=== PATIENT | female | born 1985 | race Caucasian/White ===

== ENCOUNTER → 2023-06-04 14:54 | Outpatient (BNVA) | payer OTHER, SELFPAY | PROVIDERS: PCP Pediatrics; Visit Provider Physician Assistant Surgical ==

== ENCOUNTER 2023-06-30 13:26 | Outpatient (AMB) | payer OTHER, SELFPAY ==
--- NOTE | 2023-06-30 13:28 | MHC.OFFVISWM ---
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 She heard about our program from her internet search. Her goal is to lose weight and achieve a healthy lifestyle. She reports first being concerned about her weight about 4 years ago, highest weight to date was 250. Her weight upon presentation to the [facility] SWL clinic on 06/04/23 was 250.8 with a BMI of 40.5. Current weight is 248.6 pounds with a BMI of 40.1. She has tried multiple methods of weight loss including fad diets and diet pills without permanent results. She lives with her boyfriend and his mother. 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 She wakes at:?730am, and goes to bed at?1130 pm. Dinner is at 530 pm. Breakfast: skip, coffee w cream AM snack: skip Lunch: leftovers, or eggs, homefries, corned beef hash. PM snack: skip Dinner: smashburgers, veg, chicken After dinner: ice cream, strawberries w caramel Other snacks: candy Liquids: 32 oz water daily, clearly guamanian sparkling water 24 oz daily, no juice Alcohol/marijuana/tobacco intake: hard cider 4 per weekend, no cannabis, no tobacco Exercise: arc hearing dog trainer at home, [employer] fitness membership GERD score: 7 DONTAE score: 1 ESS score: 6 QOL score: 93 PFSH Surgical History No pertinent past surgical history Family History Mother Breast cancer Father No problems noted. Brother No problems noted. Brother No problems noted. Social History Alcohol intake: current Alcohol intake frequency: holidays/special occasions only Patient Tobacco Use Status: Never used Tobacco Review of Systems Const All systems reviewed & are unremarkable except as noted in HPI and below Physical Exam Const General: cooperative, healthy appearing and no acute distress Orientation/consciousness: patient oriented x3 HEENT Head: Yes normal to inspection Ears: hearing grossly normal bilaterally General nose exam: Normal external nose present Face and sinus: Yes normal facial exam Eyes General: appearance normal, both eyes and all related structures Resp Effort & Inspection: normal respiratory effort Auscultation: clear to auscultation bilaterally Cardio Rate: regular rate Rhythm: regular rhythm Heart sounds: S1 normal heart sound present and S2 normal heart sound present GI Inspection: Yes normal to inspection, No distended and Yes obesity Palpation (GI): Soft to palpation, nontender and no guarding Auscultation: normal bowel sounds Skin General skin exam: no rashes or lesions noted Neuro General: patient oriented x3 Extrem General: No edema Psych Appearance: grossly normal Mental Status: mental status grossly normal Speech and movement: Normal speech and movement present Affect: normal affect Attitude: cooperative Assessment & Plan Assessment & Plan (1) Morbid obesity: Code(s): E66.01 - Morbid (severe) obesity due to excess calories Plan: This is a?37 yo female who will start our SWL program to prepare for bariatric surgery.? Blood work, h pylori , CXR, ECG, Abd US and UGI have been ordered. She is being scheduled for RD and BH initial consultations. She will start SWL classes and watch the first three videos before her next appointment. ? Adequate sleep of 7-8 hours per night discussed, awakening at 730 am and going to bed at 1130 pm ? Purchase body composition analyzer scale (Kamala fisher or Renpho recommended) and check weight weekly. The best time to do this is first thing in the morning after going to the bathroom. 1. Nutritional counseling: Be sure to careful read the number of scoops per shake Start with 3 Orgain shakes ([employer], [employer], [employer], [employer]), (1 scoop in 8 oz low fat unsweetened almond milk or water each) First shake at 830am-1030am, Second shake at 1230am-230pm 1 protein bar (Fulfil bars at [employer], or [employer], [employer]) at 330pm-530pm. Dinner at 530pm (9 forks of protein and 9 forks of salad/vegetables). Meal to include lean meat (beef, fish, pork, turkey, chicken), cooked vegetables or a salad with olive oil and/or fruits (berries, pears, apples, kiwi). Avoid salt, breads, potatoes, rice, pasta, desserts. Another shake with 1 scoop in 8 oz unsweetened almond milk at 7pm-9pm. Icelandic yogurt w 1/4 c fresh berries (strawberry, blueberry, raspberry, blackberry) at 10pm-11pm Try to drink 64 oz of water daily and avoid soda and juices. ?2. Each shake would be drunk slowly, like coffee in a period of 2 hours. ?3. Cut each bar in 4 pieces and eat each piece in 30 min ?to make each bar last 2 hours. ?4. I emphasized the importance of measuring accurately the food portion and measure it carefully when serving the food on the plate ?5. The meal portions include 9 full-size forks of meat and 9 full-size forks of salad. You always eat the meat portion but you can replace up to half of the forks of salad/vegetables with rice, potatoes or pasta, or a fruit ?if you like. The less you do it the better weight loss will be. ?6. One full-size fork is what can be scooped on the fork without falling aside and not what can be bit with the fork. Use regular forks like those you find in a typical restaurant. ?7.? Please send me weight measurements as soon as possible and then once a week. Always include your diet and exercise plan. Alternatively come weekly at the office for weight checks and send me the measurements. ?8. Exercise counseling: Begin by watching a stretching for beginners video. Start slowly and begin to stretch your muscles. You should do this before and after each exercise session to prevent injury. Please go to [employer] gym near your home. Ask the community development manager or one of the trainers how to use the machines if you are unfamiliar with them. Start elliptical with a resistance of 2. Increase resistance by 1 every 3 min to your most comfortable resistance with a max resistance of 8. Reduce the resistance by 1 every 3 minutes back down to 2 and repeat cycles for 300 calories. Alternatively, start treadmill with a speed of 3.0 and incline of 0, increasing incline by 1 every 3 minutes to the highest comfortable level (max 6 for now) then decrease in the same fashion. Repeat process to a goal of 300 calories. Goal of 2000 calories burned or more weekly. You may also consider use of the stationary bike. The easiest would be to chose the fat-burn or interval training program on the machine and do this until you reach the 300 calorie goal. Alternatively, you can manually adjust the resistance in a similar fashion as mentioned above, (resistance of 2-8 with a goal speed of 12 mph). Tracking calories is essential. 9. Alternatively start walking outside daily, tracking calories with a goal of 300 calories per day, daily. You can download the lisandro [email or web address] which can track your time, distance and calories while walking outside. You press start in the lisandro when you start and then stop when you are finished. You may certainly also use your arc hearing dog trainer at home, in the same fashion with interval training for the same goal of calories burned. 10.? It is important to avoid for at least 18 months postoperatively and it has been discussed at the information session 11. Please get labs, EKG and chest X-Ray within 1 week. 12. Discussed and answered all questions regarding?obtained consent to participate in the [place] [facility]?Registry. 13. Please follow the diet plan exactly, without any change. If you do not like something about the plan or you feel hungry, you need to communicate with me so I can help you revise the plan. You should not change the plan yourself. Text me at [phone] 14. Goal is to lose at least 12 pounds in the first month 15. Goal is to lose 10% of your weight before surgery, which is about 25 lbs. Ultimate weight goal: 225 lbs before surgery 16. I have also made a referral for you to [facility] Patient is morbidly obese and is not considered stable at this time.?I spent a total of 70 minutes reviewing/updating records, examining the patient and counseling the patient on weight management as detailed above. Orders: Orders Vitamin B12 and Folate Today E66.01 - Morbid (severe) obesity due to excess calories Comprehensive Met. Panel Today E66.01 - Morbid (severe) obesity due to excess calories C Reactive Protein Today E66.01 - Morbid (severe) obesity due to excess calories Ferritin Today E66.01 - Morbid (severe) obesity due to excess calories Hemoglobin A1c Today E66.01 - Morbid (severe) obesity due to excess calories Insulin Today E66.01 - Morbid (severe) obesity due to excess calories IRON PROFILE Today E66.01 - Morbid (severe) obesity due to excess calories Lipid Panel Today E66.01 - Morbid (severe) obesity due to excess calories PTHI Today E66.01 - Morbid (severe) obesity due to excess calories TSH reflex Free T4 Today E66.01 - Morbid (severe) obesity due to excess calories Vitamin A Today E66.01 - Morbid (severe) obesity due to excess calories Vitamin B1 Today E66.01 - Morbid (severe) obesity due to excess calories Vitamin D 25-OH Total Today E66.01 - Morbid (severe) obesity due to excess calories Zinc Today E66.01 - Morbid (severe) obesity due to excess calories ECG 12 lead EKG Today E66.01 - Morbid (severe) obesity due to excess calories FL upper GI w air Today E66.01 - Morbid (severe) obesity due to excess calories Complete Blood Count Auto Diff Today E66.01 - Morbid (severe) obesity due to excess calories H Pylori Breath Test Today E66.01 - Morbid (severe) obesity due to excess calories US abdomen comp w elastography Today E66.01 - Morbid (severe) obesity due to excess calories XR chest 2V Today E66.01 - Morbid (severe) obesity due to excess calories Referrals Behavioral Health Referral E66.01 - Morbid (severe) obesity due to excess calories Gastroenterology Referral E66.01 - Morbid (severe) obesity due to excess calories, K90.0 - Celiac disease Nutrition/Dietitian Referral E66.01 - Morbid (severe) obesity due to excess calories Coding Level of Care Code New Pt Level 5 (45822) Diagnoses Morbid obesity E66.01 Time Spent (min) 70
[2023-06-30 13:36] VITALS: BP 129/81; PULSE 70; TEMP 36.2; O2SAT 94; BMI 40.1
== END 2023-06-30 14:35 | disposition home or self-care (01) ==
PROVIDERS: PCP Pediatrics; Visit Provider Physician Assistant Surgical
DX: E66.01 Morbid (severe) obesity due to excess calories (principal); Z68.41 Body mass index [BMI] 40.0-44.9, adult
CPT/HCPCS: 99205

== ENCOUNTER → 2023-06-30 13:26 | Outpatient (BNVA) | payer OTHER, SELFPAY | PROVIDERS: PCP Pediatrics; Visit Provider Physician Assistant Surgical ==

== ENCOUNTER 2023-06-30 14:50 | Outpatient (REF) | payer OTHER, SELFPAY ==
[2023-07-03 12:40] LABS: H Pylori Breath Test Negative (Negative)
== END 2023-06-30 14:51 | disposition home or self-care (01) ==
LOC: HO.LNP 14:50
PROVIDERS: Visit Provider Physician Assistant Surgical
DX: E66.01 Morbid (severe) obesity due to excess calories (principal)
CPT/HCPCS: 83013

== ENCOUNTER 2023-07-04 11:04 | Outpatient (REF) | payer OTHER, SELFPAY ==
--- NOTE | ~2023-07-04 | XR_ITS ---
EXAMINATION: XR CHEST CLINICAL INFORMATION: Morbid obesity COMPARISON: None available. TECHNIQUE: 2 views of the chest were obtained. FINDINGS: No significant abnormality is noted involving the heart, lungs, mediastinum, bony thorax or soft tissues. XR/XR chest 2V IMPRESSION: Unremarkable examination.
--- NOTE | 2023-07-04 11:14 | ECG_ITS ---
Test Reason : e66.01 Blood Pressure : / mmHG Vent. Rate : 056 BPM Atrial Rate : 056 BPM P-R Int : 140 ms QRS Dur : 088 ms QT Int : 402 ms P-R-T Axes : 009 002 -13 degrees QTc Int : 387 ms Sinus bradycardia Otherwise normal ECG No previous ECGs available Referred By: Kvng Street Electronically Signed By:Hemal Jordan
[2023-07-04 11:27] LABS: MANUAL DIFF FLAG NO
[2023-07-04 12:05] LABS: Basophils Absolute Auto 0.1 X10*3/uL (0.0-0.2); Basophils Percent Auto 0.8 % (0-2); Eosinophils Absolute Auto 0.3 X10*3/uL (0.0-0.4); Eosinophils Percent Auto 2.6 % (0-4); Hematocrit 40.4 % (37.0-47.0); Imm Gran Abs Auto 0.03 X10*3/uL (0.00-0.03); Imm Gran Pct Auto 0.3 % (0.0-0.4); Lymphocytes Absolute Auto 1.9 X10*3/uL (1.2-4.9); Mean Corpuscular HGB Conc 32.2 g/dl (31.0-35.0); Mean Corpuscular Hemoglobin 28.5 pg (27.0-33.0); Mean Corpuscular Volume 88.6 fL (80.0-98.0); Mean Platelet Volume 10.7 fL (9.4-12.3); Monocytes Absolute Auto 0.6 X10*3/uL (0.1-1.2); Monocytes Percent Auto 6.7 % (2-11); Neutrophils Absolute Auto 6.7 x10*3/uL (2.0-8.3); Neutrophils Percent Auto 69.6 % (45-73); Platelet Count 337 X10*3/uL (160-400); Red Blood Count 4.56 X10*6/uL (4.20-5.50); Red Cell Distribution Width 13.5 % (11.0-16.0); White Blood Count 9.6 X10*3/uL (4.8-10.8)
[2023-07-04 12:17] LABS: Estimated Average Glucose 105 mg/dL; Hemoglobin A1c % 5.3 %
[2023-07-04 12:56] LABS: Alanine Aminotransferase 29 U/L (0-31); Albumin Level 3.9 g/dL (3.5-5.0); Alkaline Phosphatase 68 U/L (39-117); Anion Gap 9 (12-20); Aspartate Amino Transferase 19 U/L (5-31); Bilirubin Total 0.3 mg/dL (0.0-1.0); Blood Urea Nitrogen 9 mg/dL (9-16); C Reactive Protein 1.07 mg/dL (< or = 0.50); Calcium 9.4 mg/dL (8.4-10.2); Carbon Dioxide 27 mmol/L (22-29); Chloride 108 mmol/L (96-108); Cholesterol 140 mg/dL; Estimated Glomerular Filt Rate > 60; Glucose Random 98 mg/dL (60-115); HDL Cholesterol 42 mg/dL; Iron 78 mcg/dL (30-160); LDL Cholesterol Calculated 88 mg/dl; Percent Iron Saturation 28 % (15-50); Potassium 4.3 mmol/L (3.3-5.1); Sodium 140 mmol/L (135-145); Total Iron Binding Capacity 275 mcg/dL (228-428); Total Protein 7.2 g/dL (6.5-8.0); Triglycerides 51 mg/dL; Unsaturated Iron Binding 197 ug/dL
[2023-07-04 13:18] LABS: Ferritin 58 ng/mL (10-122); TSH reflex Free T4 1.45 uIU/mL (0.32-4.0); Vitamin D 25-OH Total 36.4 ng/mL (>30)
[2023-07-04 14:02] LABS: Folate 6.1 ng/mL (> or = 4.0); Vitamin B12 730 pg/mL (200-900)
[2023-07-04 18:34] LABS: Insulin 15 uU/mL (2-29)
[2023-07-07 12:04] LABS: Calcium (PTHI) 9.2 mg/dL (8.6-10.2); PTHI 54 pg/mL (16-77)
[2023-07-08 12:59] LABS: Zinc 78 mcg/dL (60-130)
[2023-07-10 14:49] LABS: Vitamin B1 13 nmol/L (8-30)
[2023-07-10 17:28] LABS: Vitamin A 37 mcg/dL (38-98)
== END 2023-07-04 11:05 | disposition home or self-care (01) ==
LOC: HO.XRAY 11:04
PROVIDERS: Visit Provider Physician Assistant Surgical
DX: E66.01 Morbid (severe) obesity due to excess calories (principal)
CPT/HCPCS: 36415; 71046; 80053; 80061; 82306; 82607; 82728; 82746; 83036; 83525; 83540; 83970; 84425; 84443; 84590; 84630; 85025; 86140; 93005

== ENCOUNTER → 2023-07-04 11:14 | Outpatient (BNV) | payer OTHER, SELFPAY | PROVIDERS: Visit Provider Internal Medicine Cardiovascular Disease | DX: R00.1 Bradycardia, unspecified (principal) | CPT/HCPCS: 93010 ==

== ENCOUNTER → 2023-07-14 15:41 | Outpatient (BNVA) | payer OTHER, SELFPAY | PROVIDERS: PCP Pediatrics; Referring Provider Physician Assistant Surgical; Visit Provider Dietitian, Registered | DX: E66.9 Obesity, unspecified (principal); Z68.41 Body mass index [BMI] 40.0-44.9, adult; Z71.3 Dietary counseling and surveillance | CPT/HCPCS: 97802 ==

== ENCOUNTER 2023-08-01 11:01 | Outpatient (AMB) | payer OTHER, SELFPAY ==
--- NOTE | 2023-08-01 11:17 | A.OFFVIS_ITS ---
Intake VS Expanded 08/01/23 11:21 Height 5 ft 6 in Weight 248 lb 3.2 oz BMI 40.1 BP 127/58 L Blood Pressure Location Rt brachial Blood Pressure Position Sitting Pulse 65 Pulse Source Pulse Oximeter Temp 98.0 F Temperature Source Temporal Artery Scan Pulse Oximetry 96 Oxygen Delivery Method Room Air Body Fat 117.0 Body Fat Percentage 47.2 Free Fat Mass 131.0 Muscle Mass 124.4 Visceral Mass 12.0 Water Mass 93.6 BMR 1,872 Intake Visit Reasons: (OV) F/U SWL Orthopaedic Surgeon Required: No Allergies Seasonal Allergies Allergy (Mild, Verified 08/01/23 11:20) Sneezing Medication List - Last Reconciled 08/01/23 by ANDRES Gross albuterol sulfate 90 mcg/actuation 2 puffs inhalation .q 4H PRN 1 month budesonide-formoterol 80-4.5 mcg/actuation (Symbicort) 2 puffs inhalation BID [fish oil PO DAILY] montelukast (Singulair) 10 mg PO DAILY vitamin A 2,400 mcg PO DAILY HPI HPI Comments History of Present Illness Details The patient is a pleasant 37 year old female who returns to the clinic for pre-operative surgical weight loss management. They were last seen in the office on 06/30/23, recorded weight at that time was 248.6 pounds, with a BMI of 40.1. Today's weight is 248.2 pounds and BMI is 40.1. There has been a weight loss of 2.6 pounds since initiating the surgical weight loss program on 06/04/23 with a total body weight loss of 1 %. Pre op work up completed as follows: SWL classes:? 03/01 BH appts: 08/06/23 ? ? RD appts: f/u 08/14/23 Labs: 07/07/23-low A H. pylori: 06/30/23-neg CXR: 07/04/23-nad EK07/04/23-sinus tony ABD U/S: 08/28/23 UGI: 10/03/23 The patient reports since last visit she has had some ups and downs having to travel 2 weeks in June. Mostly fast food/tacos etc. At home she is much better managing what she eats. Saw RD made changes to meal plan Current meal plan includes: 2 Orgain shakes ([employer], Big [employer], [facility], [email or web address]), (2 scoops in 8 oz low fat unsweetened almond milk or water each) First shake at 830am-1030am, Second shake at 1230am-230pm 1 protein bar (Fulfil bars at [facility], [facility], or Big Y, amazon) at 330pm-530pm. Dinner at 530pm (9 forks of protein and 9 forks of salad/vegetables). sometimes (3-4 out of 7) Maltese yogurt w 1/4 c fresh berries (strawberry, blueberry, raspberry, blackberry) at 10pm-11pm Drinking 96 oz of water Current exercise plan includes: arc development trainer or walking, 6-7 days per week, 300-400 on arc development trainer [facility] Surgical History No pertinent past surgical history Family History Mother Breast cancer Father No problems noted. Brother No problems noted. Brother No problems noted. Social History Alcohol intake: current Alcohol intake frequency: holidays/special occasions only Patient Tobacco Use Status: Never used Tobacco Review of Systems Const All systems reviewed & are unremarkable except as noted in HPI and below Physical Exam Vital Signs: Last Vital Signs Temp 98.0 F 08/01/23 11:21 Pulse 65 08/01/23 11:21 BP 127/58 L 08/01/23 11:21 Pulse Ox 96 08/01/23 11:21 Oxygen Delivery Method Room Air 08/01/23 11:21 BMI result Body Mass Index 40.1 Const General: healthy appearing and no acute distress Resp Effort & Inspection: normal respiratory effort Auscultation: clear to auscultation bilaterally Cardio Rate: regular rate Rhythm: regular rhythm GI Auscultation: normal bowel sounds Extrem General: Yes normal to inspection Assessment & Plan Assessment & Plan (1) Morbid obesity: Code(s): E66.01 - Morbid (severe) obesity due to excess calories Plan: Discussed strategy 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 rtc 3-4 weeks. reminded of upcoming appts Coding Level of Care Code Est Pt Level 3 (34865) Diagnoses Morbid obesity E66.01
[2023-08-01 11:21] VITALS: BP 127/58; PULSE 65; TEMP 36.7; O2SAT 96; BMI 40.1
== END 2023-08-01 12:06 | disposition home or self-care (01) ==
PROVIDERS: PCP Pediatrics; Visit Provider Physician Assistant Surgical
DX: E66.01 Morbid (severe) obesity due to excess calories (principal)
CPT/HCPCS: 99213

== ENCOUNTER → 2023-08-01 11:01 | Outpatient (BNVA) | payer OTHER, SELFPAY | PROVIDERS: PCP Pediatrics; Visit Provider Physician Assistant Surgical ==

== ENCOUNTER 2023-08-06 09:44 | Outpatient (AMB) | payer OTHER, SELFPAY ==
--- NOTE | 2023-08-06 09:10 | A.OFFWM_ITS ---
Intake Intake Visit Reasons: VIDEO BH Intake Allergies Seasonal Allergies Allergy (Mild, Verified 08/01/23 11:20) Sneezing PFSH Surgical History No pertinent past surgical history Family History Mother Breast cancer Father No problems noted. Brother No problems noted. Brother No problems noted. Social History Alcohol intake: current Alcohol intake frequency: holidays/special occasions only Patient Tobacco Use Status: Never used Tobacco Behavioral Health Assessment Weight Management Therapy Therapy Notes Details Pt is a 37 years old female, who presents for initial behavioral health assessment as part of surgical weight-loss program. PT denied any history of mental health treatment and or past hospitalization/crisis for behavioral health. Denies any safety concerns around SI and/or self-other harm, also there is no history of substance use reported. There is also no evidence for stress/emotional-eating, and scores from BES suggest minimal risk for binge eating behavior. PHQ- scores also showed no active symptoms/concerns with depression. Mental status exam is withing normal limits, suggesting person's functioning is not impaired. At this time patient is cleared from the behavioral health standpoint. Presenting Concerns Referral Source WMP Provider. PT sees RICARDA Hilario Reason for referral Completion of behavioral health assessment as part of process for weight-loss surgery. Precipitating Event Obesity. Lately she has been feeling weak. Living Situation Current Living Situation Own At risk of losing current housing? No Satisfied with current living situation? Yes Comments PT lives with her boyfriend and his mother. Food/Weight/Diet Expectations of change PT wants to be at her healthy weight and also feeling better physically. Initial goal is to lose 10% of her weight before surgery, which is about 25 lbs. Ultimate weight goal: 225 lbs before surgery History/Relationship with food Pt states she eats healthy but her issues are the constant snacking on unhealthy things. Such as candy/gummies, strawberries and caramel. She feels she eats out of boredom. Examples before starting the program Breakfast: skip as she's not hungry. Lunch: skip. Dinner: as a child was around 5:30, later as an adult around 8pm. Meal was usually Veggies and protein, sometimes with sweet potatoes. Late snack: sweets Usually don't get hungry until about 3pm. History/Relationship with weight PT reports she has been in a rollcosaster weight , Back in 2008 she was exercising daily and was able to loss 35Lbs and be at 145Lbs. But then she stop attending gym and slowly gained weight. She has also lost weight when going trough hard times due to not eating. 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 The last years her main struggle is finding the motivation to do what she knows has worked. History/Relationship with dieting Ketto diet, paleo diet, exercise routines. Binge Eating Do you frequently eat large amounts of food in short periods of time, not feeling physically hungry? No Do you feel out of control when you eat a large amount of food in a short period of time? No Do you eat large amounts of food rapidly and typically alone? No Night Eating Do you wake up at least once during the night to eat? No If you wake up in the night, do you find that it is necessary to eat something in order to fall back asleep? No Do you have little or no appetite in the morning and feel very hungry in the evening, often overeating between dinner and when you go to bed? Yes Social History Family history and relationship Pt is in a relationship 13 years ago. She lives with her partner and his mother. She has 2 younger brothers. Parents . Mom is close to her. She doesn't have communication with her dad. 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 Developmental history and status None. Social support Mom, best friend, and boyfriend. Community support None. Hinduism/Spirituality Grew up Amish Cultural/Ethnic information Mix half Moldovan (mom) and [place]ian/[place] (dad). Legal Involvement and History Current or historical involvement with the legal system? None. Education Highest grade completed Masters degree ([employer] and MA in energy projects lead) Preferred learning style Learn by doing Currently enrolled in educational program? No Interested in further educational program? No Educational Interests/Skills Business management, science. Employment Employment Status [employer] (Work remote. 8-5pm) Wants help to find employment? No Meaningful activities Videogames, reading writing, hiking, road racing. Financial Situation Describe current financial situation Comfortable Financial assistance? None Service Service? No Mental Health and Addiction Treatment Current/Past substance abuse? No Current/Past addictive behavior concerns? No Psychiatric history Never been in therapy and/or hospitalized for MH. Denied any past/current concern around safety such as SI, Self-harm/other-harm. Medical and Physical Health Summary Additional Medical History not covered in history None reported Sexual History concerns None reported Physical exam in the last year? Yes Pain Screening Current pain? Yes Pain in the last few months? Yes Comments Joint/muscle pain. Medications Is the patient compliant with medications? Yes Does the patient have Montano Guardian in place? Not applicable Does the patient use complimentary health approaches? No Trauma/Abuse History History of trauma? No Questionnaires PHQ-9 Over the last 2 weeks, how often have you been bothered by any of the following problems? 1. Little interest or pleasure in doing things: not at all 2. Feeling down, depressed, or hopeless: several days 3. Trouble falling or staying asleep, or sleeping too much: nearly every day (Trouble falling asleep, she feels is related to unhealthy sleep habits. Also small noices wakes her up. ) 4. Feeling tired or having little energy: several days (Related to not sleeping well.) 5. Poor appetite or overeating: not at all 6. Feeling bad about yourself - or that you are a failure or have let yourself or your family down: not at all 7. Trouble concentrating on things, such as reading the newspaper or watching television: not at all 8. Moving or speaking so slowly that other people could have noticed. Or the opposite - being so fidgety or restless that you have been moving around a lot more than usual: not at all 9. Thoughts that you would be better off or of hurting yourself in some way: not at all Total score: 5 Depression Screening Interpretation: Negative Source: Developed by Drs. Andrea Spence, Mariel Escalante, Milo Wadsworth and colleagues, with an educational arturo from [employer]. Binge Eating Scale Group 1 A. I don't feel self-conscious about my wt. or body size when I'm with others. B. I feel concerned about how I look to others, but it normally does not make me fell disappointed with myself C. I do get self-conscious about my appearance and wt. which makes me feel disappointed in myself. D. I feel very self-conscious about my wt. and frequently I feel intense shame and disgust for myself. I try to avoid social contacts because of my self- consciousness. Response Group 1: C Group 2 A. I don't have any difficulty eating slowly in the proper manner. B. Although I seem to gobble down foods, I don't end up feeling stuffed because of eating to much. C. At times, I tend to eat quickly and then, I feel uncomfortably full afterwards. D. I have the habit of bolting down my food, without really chewing it. When this happens I usually feel uncomfortably stuffed because I've eaten to much. Response Group 2: C Group 3 A. I feel capable to control my eating urges when I want to. B. I feel like I have failed to control my eating more than the average person. C. I feel utterly helpless when it comes to feeling in control of my eating urges. D. Because I feel so helpless about controlling my eating I have become very desperate about trying to get control. Response Group 3: A Group 4 A. I don't have the habit of eating when I'm bored. B. I sometimes eat when I'm bored, but often I'm able to get busy and get my mind off food. C. I have a regular habit of eating when I'm bored, but occasionally, I can use some other activity to get my mind off eating. D. I have a strong habit of eating when I'm bored. Nothing seems to help me breath the habit. Response Group 4: B Group 5 A. I'm usually physically hungry when I eat something. B. Occasionally, I eat something on impulse even though I really am not hungry. C. I have the regular habit of eating foods, that I might not really enjoy, to satisfy a hungry feeling even though physically, I don't need the food. D. Although I'm not physically hungry, I get a hungry feeling in my mouth that only seems to be satisfied when I eat a food, like sandwich, that fills my mouth. Sometimes, when I eat the food to satisfy my mouth hunger, I then spit the food out so I won't gain weight. Response Group 5: A Group 6 A. I don't feel any guilt or self-hate after I overeat. B. After I overeat, occasionally I feel guilt or self-hate. C. Almost all the time I experience strong guilt or self-hate after I overeat. Response Group 6: B Group 7 A. I don't lose total control of my eating when dieting even after periods when I overeat. B. Sometimes when I eat a forbidden food on a diet, I feel like I blew it and eat even more. C. Frequently, I have the habit of saying to myself, I've blown it now, why not go all the way, when I overeat on a diet. When that happens I eat more. D. I have a regular habit of starting a strict diets for myself but I break the diets by going on an eating binge. My life seems to be either a feast or famine. Response Group 7: B Group 8 A. I rarely eat so much food that I feel uncomfortably stuffed afterwards. B. Usually about once a month, I each such a quantity of food, I end up feeling very stuffed. C. I have regular periods during the month when I eat large amounts of food, either at mealtime or at snacks. D. I eat so much food that I regularly feel quite uncomfortable after eating and sometimes a bit nauseous. Response Group 8: B Group 9 A. My level of calorie intake does not go up very high or go down very low on a regular basis. B. Sometimes after I overeat, I will try to reduce my caloric intake to almost nothing to compensate for the excess calories I've eaten. C. I have a regular habit of overeating during the night. It seems that my routine is not to be hungry in the morning but overeat in the evening. D. In my adult years, I have had week-long periods where I practically starve myself. This follows periods when I overeat. It seems I live a life of either feast or famine. Response Group 9: A Group 10 A. I usually am able to stop eating when I want to. I know when enough is enough. B. Every so often, I experience a compulsion to eat which I can't seem to control. C. Frequently, I experience strong urges to eat which I seem unable to control, but at other times I can control my eating urges. D. I feel incapable of controlling urges to eat. I have a fear of not being able to stop eating voluntarily. Response Group 10: A Group 11 A. I don't have any problem stopping eating when I feel full. B. I usually can stop eating when I feel full but occasionally overeat leaving me feeling uncomfortably stuffed. C. I have a problem stopping eating once I start and usually I feel uncomfortably stuffed after I eat a meal. D. Because I have a problem not being able to stop eating when I want, I sometimes have to induce vomiting to relieve my stuffed feeling. Response Group 11: A Group 12 A. I seem to eat just as much when I'm with others, Family social gatherings as when I'm by myself. B. Sometimes, when I'm with other persons, I don't eat as much as I want to eat because I'm self-conscious about my eating. C. Frequently, I eat only a small amount of food when others are present, because I'm very embarrassed about my eating. D. I feel so ashamed about overeating that I pick times to overeat when I know no one will see me. I feel like a closet eater. Response Group 12: A Group 13 A. I eat three meals a day with only an occasional between meal snack. B. I eat 3 meals a day, but I also normally snack between meals. C. When I am snacking heavily, I get in the habit of skipping regular meals. D. There are regular periods when I seem to be continually eating, with no planned meals. Response Group 13: A Group 14 A. I don't think much about trying to control unwanted eating urges. B. At least some of the time, I feel my thoughts are pre-occupied with trying to control my eating urges. C. I feel that frequently I spend much time thinking about how much I ate or about trying not to eat anymore. D. It seems to me that most of my waking hours are pre-occupied by thoughts about eating or not eating. I feel like I'm constantly struggling not to eat. Response Group 14: A Group 15 A. I don't think about food a great deal. B. I have strong craving for food but they last only for brief periods of time. C. I have days when I can't seem to think about anything else but food. D. Most of my days seem to be pre-occupied with thoughts about food. I feel like I live to eat. Response Group 15: B Group 16 A. I usually know whether or not I'm physically hungry. I take the right portion of food to satisfy me. B. Occasionally, I feel uncertain about knowing whether or not I'm physically hungry. A these times it's hard to know how much food I should take to satisfy me. C. Even though I might know how many calories I should eat, I don't have any idea what is a normal amount of food for me. 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 Clinician has advised client about available resources if ever in need to access additional support and has encourage client to participate in upcoming workshops. Telehealth Telehealth Location of provider rendering services: other (Home office. [place], [place] Location of patient: address on file Patient Identification confirmed using: Name, : Yes Telehealth method: video Patient verbally consented to treatment: Yes Patient verbally consented to billing insurance company: Yes Patient informed of any privacy concerns related to visit: Yes Minutes spent on Phone/Video with Pt.: 60 Coding Level of Care Code New Pt Tele Psy Diag Ita (65835) Patient Type New Diagnoses Adjustment disorder, unspecified type F43.20 Adjustment disorder type: unspecified type Time Spent (min) 60
== END 2023-08-06 10:11 | disposition home or self-care (01) ==
LOC: HO.HBST 09:44
PROVIDERS: PCP Pediatrics; Visit Provider Counselor Mental Health
DX: F43.20 Adjustment disorder, unspecified (principal)
CPT/HCPCS: 90791

== ENCOUNTER → 2023-08-06 09:44 | Outpatient (BNVA) | payer OTHER, SELFPAY | PROVIDERS: PCP Pediatrics; Visit Provider Counselor Mental Health ==

== ENCOUNTER 2023-08-28 08:52 | Outpatient (REF) | payer OTHER, SELFPAY | END 2023-08-28 08:53 | disposition home or self-care (01) | LOC: HO.US 08:52 | PROVIDERS: PCP Pediatrics; Visit Provider Physician Assistant Surgical | DX: E66.01 Morbid (severe) obesity due to excess calories (principal) | CPT/HCPCS: 76705; 76981 ==

== ENCOUNTER → 2023-09-23 13:23 | Outpatient (BNVA) | payer OTHER, SELFPAY | PROVIDERS: PCP Pediatrics; Visit Provider Dietitian, Registered | DX: E66.9 Obesity, unspecified (principal); Z68.41 Body mass index [BMI] 40.0-44.9, adult; Z71.3 Dietary counseling and surveillance | CPT/HCPCS: 97803 ==

== ENCOUNTER 2023-10-03 09:58 | Outpatient (REF) | payer OTHER, SELFPAY ==
--- NOTE | ~2023-10-03 | FL_ITS ---
EXAMINATION: XR FLUOROSCOPY UPPER GI WITH AIR CLINICAL INFORMATION: Preop evaluation prior to bariatric surgery COMPARISON: None TECHNIQUE: Fluoroscopic air contrast upper GI examination was performed utilizing standard techniques with thin and thick barium and effervescent granules. Numerous spot images were obtained. FINDINGS: Dual and single contrast images of the esophagus demonstrate normal caliber, contour, and mucosal pattern. No evidence of stricture, mass, or ulcerations identified. Esophageal peristalsis was normal. A small type I hiatal hernia is present. No significant gastroesophageal reflux was seen during the course of the examination and on reflux views. Dual contrast and single contrast images of the stomach demonstrated normal contour and mucosal pattern without evidence of mass, ulceration, or other abnormality. Contrast freely passed into the gastric antrum and duodenal bulb without delay. Single and air-contrast images of the duodenal bulb demonstrate no abnormality. The duodenal sweep has a normal appearance, course, and mucosal fold appearance. The imaged proximal jejunum has a normal fold pattern and caliber. FLUOROSCOPY TIME: 2 minutes 39 seconds Number of Spot Images: 8 Number of Cine: 8 DOSE AREA PRODUCT: 2533 uGy-m2 (microgray-meter squared) FL/FL upper GI w air IMPRESSION: 1. Small type I hiatal hernia, otherwise unremarkable exam This procedure was performed by Alonzo Salguero PA-C, and supervised by Dr. Layton
== END 2023-10-03 09:59 | disposition home or self-care (01) ==
LOC: HO.XRAY 09:58
PROVIDERS: PCP Pediatrics; Visit Provider Physician Assistant Surgical
DX: E66.01 Morbid (severe) obesity due to excess calories (principal)
CPT/HCPCS: 74246

== ENCOUNTER → 2023-10-03 10:01 | Outpatient (BNV) | payer OTHER, SELFPAY | PROVIDERS: PCP Pediatrics; Visit Provider Radiology Diagnostic Radiology | DX: Z01.818 Encounter for other preprocedural examination (principal); E66.01 Morbid (severe) obesity due to excess calories | CPT/HCPCS: 74246 ==

== ENCOUNTER 2023-10-15 14:44 | Outpatient (AMB) | payer OTHER, SELFPAY ==
--- NOTE | 2023-10-15 14:52 | A.OFFVIS_ITS ---
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 They were last seen in the office on 08/01/23, recorded weight at that time was 248.2 pounds, with a BMI of 40.1. Today's weight is 250.2 pounds and BMI is 40.4. There has been a weight loss of 0.6 pounds since initiating the surgical weight loss program on 06/04/23 with a total body weight loss of 0.2 %. Pre op work up completed as follows: SWL classes:? 03/01 BH appts: cleared-08/06/23 ? ? RD appts: cleared-09/23/23 Labs: 07/07/23-low A H. pylori: 06/30/23-neg CXR: 07/04/23-nad EK07/04/23-sinus tony ABD U/S: 08/28/23-normal UGI: 10/03/23-sm HH The patient reports since last visit she states she has been very busy at work. She has had 2 people close to her from cancer. She states she does not have time for herself. She has been following the meal plan sometimes. She tae quently skips shakes during the day and eats more than she should at night. Current meal plan includes: 2 Orgain shakes ([employer], [employer], [facility], org [employer]), (1.5 scoops in 8 oz low fat unsweetened almond milk or water each)First shake at 830am-1030am, Second shake at 1230am-230pm 1 protein bar (Fulfil bars at [employer], [employer] [facility], or [employer], [employer]) at 330pm-530pm. Dinner at 530pm (9 forks of protein and 9 forks of salad/vegetables). sometimes (3-4 out of 7) Japanese yogurt w 1/4 c fresh berries (strawberry, blueberry, raspberry, blackberry) at 10pm-11pm Drinking 96 oz of water Current exercise plan includes: nothing in the last 3 weeks PFSH Surgical History No pertinent past surgical history Family History Mother Breast cancer Father No problems noted. Brother No problems noted. Brother No problems noted. Alcohol intake: current Alcohol intake frequency: holidays/special occasions only Patient Tobacco Use Status: Never used Tobacco Review of Systems Const All systems reviewed & are unremarkable except as noted in HPI and below Physical Exam Const General: healthy appearing and no acute distress Resp Effort & Inspection: normal respiratory effort Auscultation: clear to auscultation bilaterally Cardio Rate: regular rate Rhythm: regular rhythm GI Auscultation: normal bowel sounds Extrem General: Yes normal to inspection Assessment & Plan Assessment & Plan (1) Morbid obesity: Code(s): E66.01 - Morbid (severe) obesity due to excess calories Plan: Discussed her current barriers to her goals including being very busy at work and not being able to take time for herself. Discussed her 0.6 lb weight loss in the last 4 months. She states that her ?busy season? is over at the end of next week and she is able to then commit to herself. We discussed goals of 2 lb weight loss per week. We discussed weekly communication including sending me her weight and if she is having any problems with the plans. She states that she will follow the plans and return to exercising once her ?busy season? is over at the end of next week. She will return to the office in 4 weeks time. Coding Level of Care Code Est Pt Level 3 (78267) Diagnoses Morbid obesity E66.01
[2023-10-15 14:58] VITALS: BP 127/60; PULSE 89; TEMP 36.8; O2SAT 95; BMI 40.4
== END 2023-10-15 15:20 | disposition home or self-care (01) ==
PROVIDERS: PCP Pediatrics; Visit Provider Physician Assistant Surgical
DX: E66.01 Morbid (severe) obesity due to excess calories (principal)
CPT/HCPCS: 99213

== ENCOUNTER → 2023-10-15 14:44 | Outpatient (BNVA) | payer OTHER, SELFPAY | PROVIDERS: PCP Pediatrics; Visit Provider Physician Assistant Surgical ==

== ENCOUNTER 2023-11-14 13:53 | Outpatient (AMB) | payer OTHER, SELFPAY ==
--- NOTE | 2023-11-14 13:33 | A.OFFVIS_ITS ---
Intake VS Expanded 11/14/23 13:36 Height 5 ft 6 in Weight 249 lb 5 oz BMI 40.2 Intake Visit Reasons: (OV) F/U SWL Allergies Seasonal Allergies Allergy (Mild, Verified 10/15/23 14:54) Sneezing HPI HPI Comments History of Present Illness Details The patient is a pleasant 38 year old female who returns to the clinic for pre-operative surgical weight loss management. They were last seen in the office on 10/15/2023, recorded weight at that time was 250.2 pounds, with a BMI of 40.4. Today's weight is 249.5 pounds and BMI is 40.2. There has been a weight loss of 1.3 pounds since initiating the surgical weight loss program on 06/04/2023 with a total body weight loss of 0.5 %. Pre op work up completed as follows: SWL classes:? 03/01 BH appts: cleared-08/06/23 ? ? RD appts: cleared-09/23/23 Labs: 07/07/23-low A H. pylori: 06/30/23-neg CXR: 07/04/23-nad EK07/04/23-sinus tony ABD U/S: 08/28/23-normal UGI: 10/03/23-sm HH The patient reports since last visit she has continued to make healthy choices although has been unable to commit to the exercise portion of the plan. She feels as though she is unable to commit to the program at this time. She would like to withdraw from the program and return in the future when she can fully commit. Current meal plan includes: 2 Orgain shakes ([employer], [employer], [employer], [employer]), (1.5 scoops in 8 oz low fat unsweetened almond milk or water each) First shake at 830am-1030am, Second shake at 1230am-230pm 1 protein bar (Fulfil bars at [employer], or [employer], [employer]) at 330pm-530pm. Dinner at 530pm (9 forks of protein and 9 forks of salad/vegetables). sometimes (3-4 out of 7) Tajik yogurt w 1/4 c fresh berries (strawberry, blueberry, raspberry, blackberry) at 10pm-11pm Drinking 96 oz of water Current exercise plan includes: nothing in the last 3 weeks PFSH Surgical History No pertinent past surgical history Family History Mother Breast cancer Father No problems noted. Brother No problems noted. Brother No problems noted. Social History Alcohol intake: current Alcohol intake frequency: holidays/special occasions only Patient Tobacco Use Status: Never used Tobacco Assessment & Plan Assessment & Plan (1) Morbid obesity: Code(s): E66.01 - Morbid (severe) obesity due to excess calories Plan: Patient is going to withdrawal from the program at this time. She may return in the future if she wishes. She was encouraged to take which she has learned in apply as much as possible. Telehealth Telehealth Location of provider rendering services: practice address Location of patient: address on file Patient Identification confirmed using: Name, : Yes Telehealth method: voice only Patient verbally consented to treatment: Yes Patient verbally consented to billing insurance company: Yes Patient informed of any privacy concerns related to visit: Yes Minutes spent on Phone/Video with Pt.: 10 Coding Level of Care Code Tele Est Pt Level 2 (06249) Diagnoses Morbid obesity E66.01 Time Spent (min) 10
[2023-11-14 13:36] VITALS: BMI 40.2
== END 2023-11-14 13:53 | disposition home or self-care (01) ==
LOC: HO.HBS 13:53
PROVIDERS: PCP Pediatrics; Visit Provider Physician Assistant Surgical
DX: E66.01 Morbid (severe) obesity due to excess calories (principal)
CPT/HCPCS: 99212

== ENCOUNTER → 2023-11-14 13:53 | Outpatient (BNVA) | payer OTHER, SELFPAY | PROVIDERS: PCP Pediatrics; Visit Provider Physician Assistant Surgical ==